=== PATIENT | female | born 1980 | race African-American/Black ===

== ENCOUNTER 2018-10-01 09:07 | Day surgery (SDC) | payer BC, OTHER ==
[2018-09-15 13:20] VITALS: BMI 34.0
[2018-10-01] MEDS ORDERED: BUPIVACAINE HCL/PF (5 MG/ML) 30 ML VIAL IJ ONE (09:57)
[2018-10-01] MEDS ORDERED: BUPIVACAINE LIPOSOME/PF (EXPAREL) 266 MG/20 ML VIAL ONE (09:57)
[2018-10-01] MEDS ORDERED: MIDAZOLAM HCL 2 MG/2 ML SINGLE DOSE VIAL ONE ×3 (09:57→11:20)
[2018-10-01] MEDS ORDERED: PROPOFOL 20 ML ONE ×3 (12:46)
[2018-10-01] MEDS ORDERED: ceFAZolin SODIUM 1 GM VIAL ONE (13:00)
[2018-10-01] MEDS ORDERED: ONDANSETRON 4 MG/2 ML VIAL ONE (13:24)
[2018-10-01] MEDS ORDERED: DEXAMETHASONE SOD PHOSPHATE 4 MG/1 ML VIAL ONE (13:24)
[2018-10-01] MEDS ORDERED: oxyCODONE HCL 5 MG TABLET PO PRN ×2 (14:49)
[2018-10-01] MEDS ORDERED: ONDANSETRON 4 MG/2 ML VIAL IVPUSH PRN (14:49)
[2018-10-01] MEDS ORDERED: LACTATED RINGERS SOLUTION 1,000 ML IV SCH (15:00)
--- NOTE | 2018-10-01 17:54 | OP ---
DATE OF OPERATION: 10/01/2018 PREOPERATIVE DIAGNOSIS: Left anterior cruciate ligament rupture. POSTOPERATIVE DIAGNOSIS: Left anterior cruciate ligament rupture. PROCEDURE: Left knee arthroscopy with anterior cruciate ligament reconstruction, patella tendon autograft. SURGEON: Monet Hernandez M.D. EARTHMOVING LABOURER: Sheron Kan, whose skillful assistance was necessary for the safe and timely performance of this procedure. Ms. Wilson was able to provide positioning, retraction, assistance driving the camera, as well as graft preparation, graft insertion, and graft fixation. ANESTHESIA: Regional plus spinal. POSTOPERATIVE CONDITION: Stable. COMPLICATIONS: None. IMPLANTS: [employer]posite interference screw 7 mm x 20 on the femoral side, and 30 mm x 7 on the tibial side. In addition, a backup fixation of 4.7 x 5 mm Swivelock was used on the tibia. INDICATION: This is a pleasant 37-year-old female who roughly 2 years ago had injured her ACL. She continued to experience instability events, and elected for ACL reconstruction. Prior to surgery, the risks, benefits, and alternatives to surgery were discussed in depth with the patient as well as her . Operative risks were reviewed including bleeding, infection, neurovascular injury, need for further surgery, postoperative pain and stiffness, persistent instability, graft rerupture. We discussed medical risks such as heart attack, stroke, DVT, PE and . I addressed the use of perioperative antibiotics and DVT prophylaxis. I reviewed postoperative rehabilitation protocol and activity limitations. I addressed all the patient's questions and concerns. She voiced understanding and elected to proceed. DESCRIPTION OF PROCEDURE: Patient is brought to the operating room after administration of a regional block in the preoperative holding area. Final anesthetic was then administered. Left lower extremity was then prepped and draped in the usual sterile fashion. A preoperative jalyn was made on the skin. Antibiotics were given, and the usual timeout procedure was performed. The limb was examined, demonstrating full range of motion, no effusion, and grossly positive Lissette. The collaterals were stable. The PCL was stable. The bony landmarks were now marked out. Given the gross instability, decided to perform a graft harvest first. An incision was planned out in midline over the patellar tendon. This was carried down to the skin and subcutaneous tissue after elevating the tourniquet to 250 mmHg. Blunt spreading was used to expose the peritoneum, which was split in line with the tendon. The borders of the tendon were then identified, and the central third was chosen, 10 mm in diameter. A catamaran blade was now used to excise the middle third of the tendon. The bone blocks from both sides were then marked out. An oscillating saw was used to create the bone blocks. They were then retrieved out along with the tendon and then prepared on the back table and to a size 10 on both sides. The femoral side is prepared to to a size 18. The tibial size is prepared to 23 mm. Both sides were drilled and passing sutures were placed. The portals were now established and arthroscope was passed into the knee . Examination of patellofemoral joint demonstrated some mild articular wear. Passing the arthroscope into the notch demonstrating completely ruptured ACL. The PCL appeared intact. The arthroscope was passed into the medial compartment. A medial portal was established as well. The medial meniscus was examined. While there was some longitudinal degeneration on the posterior horn of the medial meniscus adjacent to the root, no katia tear was identified, and the root was found to be stable. There was some diffuse mild to moderate articular wear on both the tibial and femoral surfaces. The lateral compartment was examined demonstrating some very mild articular wear and no meniscal pathology. femur and no meniscal pathology. There was moderate wear on the tibia. The arthroscope was now passed back into the notch. Here, the remnant of the ACL was debrided. A small notchplasty was performed, given the chronicity of the tear was performed to provide better visualization. The femoral drill guide was now inserted into the notch. The guide was positioned on the anatomic origin at the ACL. A small incision was made laterally in the thigh and the trocar was passed down to the femur. The Flipcutter was now drilled into the knee. Flipcutter placement was verified, and then the Flipcutter was tied. A 10 mm x 28 mm socket was created here. Flipcutter was then removed, and a passing suture was placed. Attention was then turned to the tibia. Here, a 55 degree drill angle was used, and the tibial guide was inserted onto the anatomic insertion of the ACL. The guidepin was drilled here. Guidepin placement was verified, and then a tunnel was created on this side 10 mm. Passing sutures were then passed through the tibial side. The graft was now passed through the tibial side and into the femoral side, utilizing the probe to allow for easy passage of the femoral bone block. Before the block was firmly seated, a guidewire was inserted through an anteromedial accessory portal into the socket. The bone block was then drawn in. The 7 x 20 mm interference screw was now inserted, and good purchase was achieved. The needle was now cycled several times. The guidepin was inserted anterior to the tibia. Initially, a 9 mm screw was inserted here, however, it was too large to fit. A 7 mm screw was then inserted, gaining good purchase. The Lissette maneuver was now performed, and the knee was found to be stable. The was now inserted with the drilled Swivelock anchor in the anterior aspect of the tibia to back up the screw. At this point, the excess fluid was withdrawn from the knee. Deep tissue was approximated using 0 Vicryl. The subcutaneous tissue was approximated using 0 Vicryl. The skin was closed using 3-0 nylon. Sterile dressings were placed. The patient was transferred to recovery room in stable condition. It should be noted that 2 Tightropes were going to be used during the case, however, during the loading of the Tightropes the construct was not satisfactory, and therefore both of them were discarded, and interference screw fixator was chosen. MONET HERNANDEZ M.D. ALBIN/[id number]
[2018-10-01 18:49] VITALS: PULSE 62
[2018-10-01 20:26] VITALS: BP 118/72; TEMP 97.8
== END 2018-10-01 20:26 | disposition home or self-care (01) ==
LOC: FASU 09:07
PROVIDERS: ATTEND Orthopaedic Surgery Sports Medicine
PROC: 0MRP47Z Replacement of Left Knee Bursa and Ligament with Autologous Tissue Substitute, Percutaneous Endoscopic Approach (ICD-10-PCS; principal; 2018-10-01 13:07)
DX: S83.512A Sprain of anterior cruciate ligament of left knee, initial encounter (principal); X58.XXXA Exposure to other specified factors, initial encounter; Y93.9 Activity, unspecified; Y92.9 Unspecified place or not applicable
CPT/HCPCS: 73560-TC-LT-FY; 84703; 94760